=== PATIENT | male | born 1965 | race Caucasian/White ===

== ENCOUNTER 2022-12-15 07:51 | Day surgery (SDC) | payer OTHER, SELFPAY ==
[2022-12-13 13:24] VITALS: BMI 24.7
[2022-12-15 08:47] VITALS: BP 129/82; PULSE 73; RESP 18; TEMP 36.8; O2SAT 100; BMI 24.7
[2022-12-15] MEDS: LACTATED RINGERS 1,000 ML 100 ML IV ×2 (09:12→11:20)
--- NOTE | 2022-12-15 09:55 | PM.PREOP ---
Pre-operative Note Interval Note History & Physical reviewed/Exam performed by Physician: Yes Changes to H&P: No
[2022-12-15] MEDS: CLINDAMYCIN 900 MG/50 ML PIGGYBACK 50 MG IV (10:05)
--- NOTE | 2022-12-15 11:15 | SUR.OPER ---
Supine on padded OR bed with pink pad positioner, head on gel donut, arms padded and tucked at sides, legs uncrossed, safety belt at thigh, tape over blanket over lower legs .
[2022-12-15] MEDS: BUPIVACAINE 0.5% MDV 15 ML INJ (11:50)
[2022-12-15 12:21] VITALS: BP 143/73; PULSE 75; RESP 15; TEMP 36.9; O2SAT 97
[2022-12-15 12:25] VITALS: BP 146/74; PULSE 95; RESP 18; TEMP 36.7; O2SAT 97
[2022-12-15] MEDS: OXYCODONE/ACETAMINOPHEN 5/325 TABLET 1 TAB PO (12:30)
[2022-12-15 12:32] VITALS: BP 131/75; PULSE 77; RESP 15; TEMP 36.7; O2SAT 96
[2022-12-15 12:40] VITALS: BP 121/62; PULSE 75; RESP 12; TEMP 36.3; O2SAT 98
--- NOTE | 2022-12-15 12:46 | PM.OP.1 ---
Operative Date/Time/Diagnoses Date of procedure: 12/15/22 Time of procedure: 12:47 Pre-op diagnosis: Recurrent left inguinal hernia, right inguinal hernia Post-op diagnosis: same Procedure & Clinicians Procedure: Laparoscopic repair of left recurrent inguinal hernia. Laparoscopic repair of right Same procedure as scheduled: Yes Indications: 57-year-old man with symptomatic bilateral inguinal hernia. Prior open left inguinal hernia repair no right inguinal repair. Surgeon: Marcos [employer] Patroller: [employer] Yes if Unassisted: Yes Anesthesia Type: General Operative Notes Findings: Left recurrent direct defect. Right small indirect defect Specimen(s): none sent Estimated Blood Loss (mL): 50 Procedure in detail: The patient was brought to the operating room and placed supine on the table. Bilateral sequential compression devices were applied. General anesthesia was induced and they were intubated with an endotracheal tube. A whelan cath was placed in sterile fashion. They received 900g clindaymycin prior to skin incision. They were prepped and draped in sterile fashion. A time out was performed to ensure the correct patient, procedure and necessary equipment within the operating room. The skin was infiltrated with 0.25% bupivicaine. A 1 cm supra umbilical midline incision was made. The fascia was sharply incised and the abdomen entered traumatically. A 10mm balloon port was placed and pneumoperitoneum was established at 15mm Hg. Inspection of the abdomen demonstrated no evidence of injury upon entry. Two 5 mm ports were then placed under direct visualization in the right and left lower quadrant lateral to the rectus muscle. A left direct recurrent defect was identified and a small right indirect defect. Starting on the left side the peritoneum 4 cm superior to the deep inguinal ring between the medial umbilical ligament and the anterior superior iliac spine was incised. The medial preperitoneal dissection was carried out into the space of Retzius bluntly, the bladder was swept inferiorly, the pubis and Deejay's ligament were identified. Next attention was turned towards the lateral aspect of the peritoneal flap. The preperitoneal fat with the testicular vessels was carefully dissected off the inferior peritoneal flap. The cord was carefully inspected there was no evidence of a indirect hernia. The attachements to the direct hernia sac were divided and the direct defect was reduced. There was a small amount of hemorrhage from the scar tissue to the inferior aspect of the peritoneal flap which was controlled with the clip electrician ship. A large Bard 3D Max mesh was then placed into the abdomen and positioned such that the myopectineal orifice was completely covered with good overlap on all sides. The peritoneal flap was then repositioned back to its original position and a running V lock suture was used to close the peritoneum such that no bowel could herniate into the preperitoneal space. The area was examined for hemostasis. Next the right side was addressed. The peritoneum 4 cm superior to the deep inguinal ring between the medial umbilical ligament and the anterior superior iliac spine was incised. The medial preperitoneal dissection was carried out into the space of Retzius bluntly, the bladder was swept inferiorly, the pubis and Deejay's ligament were identified. Next attention was turned towards the lateral aspect of the peritoneal flap. The preperitoneal fat with the testicular vessels was carefully dissected off the inferior peritoneal flap. The cord was carefully inspected there was a small indirect hernia which was meticulously skeletonized off of the cord structures.. The attachements to the direct hernia sac were divided and the direct defect was reduced. A large Bard 3D Max mesh was then placed into the abdomen and positioned such that the myopectineal orifice was completely covered with good overlap on all sides. The peritoneal flap was then repositioned back to its original position and a running V lock suture was used to close the peritoneum such that no bowel could herniate into the preperitoneal space. The area was examined for hemostasis. The 5mm trocars were removed under direct visualization and pneumoperitoneum was deflated through the umbilical trocar, The fascia at the umbilicus was closed with 0-Vicryl in figure of 8 fashion, skin closed with 4-0 Monocyl followed by Dermabond. The sponge and instrument count at the end of the case was correct. Both testicles were entirely within the scrotum at the end of the case. The patient emerged from anesthsia was extubated and transferred to recovery in stable condition. Complications: none Post-operative Condition: stable Disposition: same day surgery
== END 2022-12-15 13:09 | disposition home or self-care (01) ==
PROVIDERS: PCP Family Medicine; Referring Provider Surgery; Visit Provider Surgery
PROC: 0YQ64ZZ Repair Left Inguinal Region, Percutaneous Endoscopic Approach (ICD-10-PCS; CPT 49651; principal; 2022-12-15 10:15)
DX: K40.91 Unilateral inguinal hernia, without obstruction or gangrene, recurrent (principal); K40.90 Unilateral inguinal hernia, without obstruction or gangrene, not specified as recurrent
CPT/HCPCS: 49651; 49650; 82962; J0330; J1100; J2405; J2704; J3010